=== PATIENT | male | born 1940 ===

== ENCOUNTER 2017-12-27 09:02 | Outpatient (CLI) | payer OTHER ==
[~2017-12-27 09:02] MED LIST: AMBIEN5 MG; GLIPIZIDE10 MG; GLUCOPHAGE XR500 MG; LIPITOR40 MG; LOSARTAN-HCTZ1 EAC2
== END 2017-12-27 09:08 | disposition home or self-care (01) ==
LOC: TOM 09:02
DX: G89.11 Acute pain due to trauma (principal); M79.632 Pain in left forearm; E08.9 Diabetes mellitus due to underlying condition without complications; I10 Essential (primary) hypertension

== ENCOUNTER 2018-01-04 11:08 | Outpatient (CLI) | payer OTHER | END 2018-01-04 11:20 | disposition home or self-care (01) | LOC: MRI 11:08 | DX: M79.602 Pain in left arm (principal) | CPT/HCPCS: 73221 ==

== ENCOUNTER 2018-09-14 09:49 | Outpatient (CLI) | payer OTHER | END 2018-09-14 15:53 | disposition home or self-care (01) | LOC: RX STUDY 09:49 | DX: I10 Essential (primary) hypertension (principal); R13.10 Dysphagia, unspecified; E07.89 Other specified disorders of thyroid; J30.89 Other allergic rhinitis; R05 Cough; Z13.89 Encounter for screening for other disorder; Z13.220 Encounter for screening for lipoid disorders; Z12.5 Encounter for screening for malignant neoplasm of prostate; Z12.11 Encounter for screening for malignant neoplasm of colon ==

== ENCOUNTER 2021-02-02 08:44 | Outpatient (CLI) | payer OTHER | END 2021-02-02 08:53 | disposition home or self-care (01) | LOC: TOM 08:44 | PROVIDERS: ATTEND General Practice | DX: N28.89 Other specified disorders of kidney and ureter (principal); R10.84 Generalized abdominal pain; E11.65 Type 2 diabetes mellitus with hyperglycemia; R32 Unspecified urinary incontinence; R10.30 Lower abdominal pain, unspecified ==

== ENCOUNTER 2021-02-02 10:30 | Outpatient (CLI) | payer OTHER | END 2021-02-02 10:33 | disposition home or self-care (01) | LOC: LAB 10:30 | PROVIDERS: ATTEND Radiology Diagnostic Radiology | DX: N20.0 Calculus of kidney (principal) ==